=== PATIENT | female | born 1955 | race Caucasian/White ===

== ENCOUNTER 2017-09-19 13:48 | Observation (INO) | payer OTHER ==
--- NOTE | 2017-09-19 14:05 | RADIOLOGY REPORT (SQ) ---
EXAM DESCRIPTION: CT HEAD WITHOUT COMPLETED DATE/TIME: 09/19/2017 1:55 pm REASON FOR STUDY: stroke s/s COMPARISON: None. TECHNIQUE: Axial images acquired through the brain without intravenous contrast. Images reviewed wi th bone, brain and subdural windows. Images stored on PACS. All CT scanners at this facility use dose modulation, iterative reconstruction, and/or weight based d osing when appropriate to reduce radiation dose to as low as reasonably achievable (ALARA). [facility]: Dose Right [facility]: CareDose [facility]: Dose Right [facility]: Teradose 4D [facility]: Smart [employer] RADIATION DOSE: mGy. LIMITATIONS: None. FINDINGS: VENTRICLES: Normal size and contour. CEREBRUM: No masses. No hemorrhage. No midline shift. No evidence for acute infarction. Normal gra y/white matter differentiation. No areas of low density in the white matter. CEREBELLUM: No masses. No hemorrhage. No alteration of density. No evidence for acute infarction. EXTRAAXIAL SPACES: No fluid collections. No masses. ORBITS AND GLOBE: No intra- or extraconal masses. Normal contour of globe without masses. CALVARIUM: No fracture. PARANASAL SINUSES: No fluid or mucosal thickening. SOFT TISSUES: No mass or hematoma. OTHER: No other significant finding. IMPRESSION: NORMAL BRAIN CT WITHOUT CONTRAST. EVIDENCE OF ACUTE STROKE: NO. COMMENT: Quality ID # [id number]: Final reports with documentation of one or more dose reduction techniques (e.g., Automated exposure control, adjustment of the mA and/or kV according to patient size, use of iterative reconstruction technique) TECHNICAL DOCUMENTATION: JOB ID: [id number] [employer]- All Rights Reserved
--- NOTE | 2017-09-19 14:08 | RADIOLOGY REPORT (SQ) ---
EXAM DESCRIPTION: CHEST SINGLE VIEW COMPLETED DATE/TIME: 09/19/2017 2:00 pm REASON FOR STUDY: stroke s/s COMPARISON: None. EXAM PARAMETERS: NUMBER OF VIEWS: One view. TECHNIQUE: Single frontal radiographic view of the chest acquired. RADIATION DOSE: NA LIMITATIONS: None. FINDINGS: LUNGS AND PLEURA: No opacities, masses or pneumothorax. No pleural effusion. MEDIASTINUM AND HILAR STRUCTURES: No masses. Contour normal. HEART AND VASCULAR STRUCTURES: Heart normal in size. Normal vasculature. BONES: No acute findings. HARDWARE: None in the chest. OTHER: No other significant finding. IMPRESSION: NO ACUTE RADIOGRAPHIC FINDING IN THE CHEST. TECHNICAL DOCUMENTATION: JOB ID: [id number] [employer]- All Rights Reserved
[2017-09-19 14:14] LABS: ABSOLUTE BASOPHILS # (AUTO) 0.1 10^3/uL (0.0-0.2); ABSOLUTE EOSINOPHILS # (AUTO) 0.2 10^3/uL (0.0-0.6); ABSOLUTE LYMPHOCYTES (AUTO) 2.2 10^3/uL (0.5-4.7); ABSOLUTE MONOCYTES (AUTO) 0.5 10^3/uL (0.1-1.4); ABSOLUTE NEUT (AUTO) 4.9 10^3/uL (1.7-8.2); BASOPHILS % (AUTO) 0.9 % (0-2); EOSINOPHILS % (AUTO) 2.2 % (0-6); HEMATOCRIT 37.8 % (36.0-47.0); HEMOGLOBIN 12.8 g/dL (12.0-15.5); HGB HCT DIFFERENCE 0.6; LYMPHOCYTES % (AUTO) 27.9 % (13-45); MEAN CORPUSCULAR HGB CONC 33.8 g/dL (32.0-36.0); MEAN CORPUSCULAR VOLUME 86 fl (80-97); MONOCYTES % (AUTO) 6.6 % (3-13); RED BLOOD COUNT 4.41 10^6/uL (3.72-5.28); RED CELL DISTRIBUTION WIDTH 13.6 % (11.5-14.0); SEGMENTED NEUTROPHILS % (AUTO) 62.4 % (42-78); WHITE BLOOD COUNT 7.9 10^3/uL (4.0-10.5)
[2017-09-19 14:16] LABS: PROTHROMBIN TIME 13.2 SEC (11.4-15.4)
[2017-09-19 14:32] LABS: ALANINE AMINOTRANSFERASE 39 U/L (9-52); ALBUMIN 4.2 g/dL (3.5-5.0); ALKALINE PHOSPHATASE 77 U/L (38-126); ANION GAP 14 (5-19); ASPARTATE AMINO TRANSFERASE 38 U/L (14-36); BILIRUBIN,DIRECT 0.4 mg/dL (0.0-0.4); BILIRUBIN,TOTAL 0.8 mg/dL (0.2-1.3); BLOOD UREA NITROGEN 9 mg/dL (7-20); CALCIUM 9.5 mg/dL (8.4-10.2); CARBON DIOXIDE 24 mmol/L (22-30); CHLORIDE 106 mmol/L (98-107); CREATINE KINASE 126 U/L (30-135); CREATININE RESULT 0.76 mg/dL (0.52-1.25); GLUCOSE 83 mg/dL (75-110); POTASSIUM 4.1 mmol/L (3.6-5.0); SODIUM 143.8 mmol/L (137-145); TOTAL PROTEIN 7.5 g/dL (6.3-8.2)
--- NOTE | 2017-09-19 14:32 | ER Document Report ---
ED Neuro Symptoms/Deficit - General Chief Complaint: S/S of Possible Stroke Stated Complaint: POSSIBLE STROKE Time Seen by Provider: 09/19/17 14:18 Notes: Patient says that she had sudden onset of inability to feel on her right side, starting in the foot and then moving up her body. It felt numb, but it is "coming back now". She had difficulty speaking and was not able to talk when the symptoms were at their worst. Did not have any loss of consciousness and no headache. She keeps saying that it is "coming back now" over and over. Patient denies any difficulty with keeping her balance and was able to stand to get on the stretcher when EMS picked her up. Patient denies nausea or vomiting. Denies chest pains. Denies any fever. Patient denies any difficulty breathing or shortness of breath. Has not had any recent illness or fevers. Patient says that she was at work at [employer] at about 1:00 today when the symptoms occurred. She cannot tell me what her duties are at [employer]. Patient says that she has not had any medical problems in the past and is not currently on any medications. She has had no surgeries. Patient denies being under any unusual stress or strain or emotional concerns. - Related Data Allergies/Adverse Reactions: No Known Allergies Allergy (Unverified 09/19/17 14:15) Past Medical History - Social History Smoking Status: Unknown if Ever Smoked Cigarette use (# per day): No Chew tobacco use (# tins/day): No Frequency of alcohol use: None Drug Abuse: None Family History: Reviewed & Not Pertinent Patient has suicidal ideation: No Patient has homicidal ideation: No - Medical History Medical History: Negative Review of Systems - Review of Systems Notes: REVIEW OF SYSTEMS: CONSTITUTIONAL : Denies fever. EENT: Denies eye, ear, nose or mouth or throat pain or other symptoms. CARDIOVASCULAR: Denies chest pain. RESPIRATORY: Denies cough, chest congestion, or shortness of breath. GASTROINTESTINAL: Denies abdominal pain or nausea, vomiting, or diarrhea. GENITOURINARY: Denies difficulty or painful urinating, urinary frequency, blood in urine. MUSCULOSKELETAL: Denies back or neck pain. Denies joint pain or swelling. SKIN: Denies rash or skin lesions. NEUROLOGICAL: Denies LOC. Denies headache. Denies change in vision. ALL OTHER SYSTEMS REVIEWED AND NEGATIVE. Physical Exam - Vital signs Vitals: Resp Pulse Ox 17 99 09/19/17 14:09 09/19/17 14:09 Interpretation: Normal - Notes Notes: PHYSICAL EXAMINATION: GENERAL: Well-appearing, in no acute distress. Anxious. Speech is somewhat interrupted and stuttering and hesitant and at times patient is not able to answer a question like what her job description entails. HEAD: Atraumatic, normocephalic. EYES: Pupils equal round and reactive to light, extraocular movements intact. ENT: oropharynx clear without exudates. Moist mucous membranes. NECK: Normal range of motion, supple. No carotid bruits heard. LUNGS: Breath sounds clear and equal bilaterally. HEART: Regular rate and rhythm without murmurs. ABDOMEN: Soft, nontender. No guarding or rebound. BACK: No tenderness throughout entire back. EXTREMITIES: Normal range of motion without pain. NEUROLOGICAL: Speech is somewhat stuttering and hesitant and at times, does not speak at all. Gait not observed at this time. Normal sensory, motor, and reflex exams. Awake, alert, and oriented x3. Cranial nerves normal. PSYCH: Normal mood, normal affect. SKIN: Warm, dry, no rashes. Course - Re-evaluation Re-evalutation: 09/19/17 16:33 Patient symptoms have now totally resolved. She no longer feels difficulty with her speech. She is now able to answer any questions asked of her. Her sister says that she is her normal self completely. Patient likely had a small TIA that has resolved for now. I have spoken with the hospitalist and patient will be admitted for observation to telemetry. - Vital Signs Vital signs: Temp Pulse Resp BP Pulse Ox 83 18 150/81 H 100 09/19/17 14:13 09/19/17 14:13 09/19/17 14:13 09/19/17 14:13 - Laboratory Result Diagrams: 09/19/17 14:00 09/19/17 14:00 - Diagnostic Test Radiology reviewed: Image reviewed, Reports reviewed - CT scan of the brain is normal. Radiology results interpreted by me: 09/19/17 16:34 Chest x-ray is normal. - EKG Interpretation by [place] EKG shows normal: Sinus rhythm Rate: Normal Rhythm: NSR Additional EKG results interpreted by me: 09/19/17 14:36 EKG is normal. Discharge - Discharge Clinical Impression: TIA (transient ischemic attack) Condition: Stable Disposition: ADMITTED OBSERVATION Admitting Provider: Hospitalist Unit Admitted: Telemetry
[2017-09-19 14:44] LABS: CREATINE KINASE MB 1.28 ng/mL (<4.55)
[2017-09-19 14:45] LABS: TROPONIN I < 0.012 ng/mL
[2017-09-19] MEDS ORDERED: ASPIRIN 81 MG TABLET, CHEWABLE PO ONE (16:31)
[2017-09-19] MEDS ORDERED: ACETAMINOPHEN 325 MG TABLET PO PRN (17:39)
[2017-09-19] MEDS ORDERED: ONDANSETRON 4 MG TAB.RAPDIS PO PRN (17:39)
[2017-09-19] MEDS ORDERED: ONDANSETRON HCL INJ/PF 4 MG/2 ML SDV IV PRN (17:39)
--- NOTE | 2017-09-19 17:50 | PDOC H&P ---
History of Present Illness Admission Date/PCP: 09/19/17 17:08 Patient complains of: Right sided numbness History of Present Illness: BENI SANDERSON is a 62 year old female who has no significant past medical history who was at work today when she began to experience right-sided numbness. Patient reports that it started with her leg and then advanced up to her involve her right arm and right face. Her coworker noticed that she has some slurred speech and called 911. The patient has had resolution of the symptoms by the time EMS arrived. Patient has no significant past medical history does not take any medications. She denies any visual loss. She denies any dysphagia. Denies any focal weakness. 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 Traumatic Medical History: Reports: None Hematology: Reports: None Infectious Medical History: Reports: None Past Surgical History Past Surgical History: Reports: Other - Skin surgery for squamous cell cancer. Social History Information Source: Patient Lives with: Alone Smoking Status: Never Smoker Frequency of Alcohol Use: None Hx Recreational Drug Use: No Drugs: None Hx Prescription Drug Abuse: No - Advance Directive Resuscitation Status: Full Code Family History Family History: Mother at age 70 from kidney cancer. Father is 70 alive. His health history is unknown. Parental Family History Reviewed: Yes Children Family History Reviewed: No Sibling(s) Family History Reviewed.: No Medication/Allergy Allergies/Adverse Reactions: No Known Allergies Allergy (Unverified 09/19/17 14:15) Review of Systems Constitutional: ABSENT: chills, fever(s), headache(s), weight gain, weight loss Eyes: ABSENT: visual disturbances Ears: ABSENT: hearing changes Cardiovascular: ABSENT: chest pain, dyspnea on exertion, edema, orthropnea, palpitations Respiratory: ABSENT: cough, hemoptysis Gastrointestinal: ABSENT: abdominal pain, constipation, diarrhea, hematemesis, hematochezia, nausea, vomiting Genitourinary: ABSENT: dysuria, hematuria Musculoskeletal: ABSENT: joint swelling Integumentary: ABSENT: rash, wounds Neurological: PRESENT: as per HPI Psychiatric: ABSENT: anxiety, depression Endocrine: ABSENT: cold intolerance, heat intolerance, polydipsia, polyuria Hematologic/Lymphatic: ABSENT: easy bleeding, easy bruising Physical Exam Vital Signs: Temp Pulse Resp BP Pulse Ox 97.7 F 75 19 141/88 H 97 09/19/17 14:35 09/19/17 16:59 09/19/17 17:01 09/19/17 17:01 09/19/17 17:01 General appearance: PRESENT: no acute distress, well-developed, well-nourished Head exam: PRESENT: atraumatic, normocephalic Eye exam: PRESENT: conjunctiva pink, EOMI, PERRLA. ABSENT: scleral icterus Ear exam: PRESENT: normal external ear exam Mouth exam: PRESENT: moist, tongue midline Neck exam: ABSENT: carotid bruit, JVD, lymphadenopathy, thyromegaly Respiratory exam: PRESENT: clear to auscultation alma delia. ABSENT: rales, rhonchi, wheezes Cardiovascular exam: PRESENT: RRR. ABSENT: diastolic murmur, rubs, systolic murmur Pulses: PRESENT: normal dorsalis pedis pul Vascular exam: PRESENT: normal capillary refill GI/Abdominal exam: PRESENT: normal bowel sounds, soft. ABSENT: distended, guarding, mass, organolmegaly, rebound, tenderness Rectal exam: PRESENT: deferred Extremities exam: PRESENT: full ROM. ABSENT: calf tenderness, clubbing, pedal edema Neurological exam: PRESENT: alert, awake, oriented to person, oriented to place , oriented to time, oriented to situation, CN II-XII grossly intact. ABSENT: motor sensory deficit Psychiatric exam: PRESENT: appropriate affect Skin exam: PRESENT: dry, intact, warm. ABSENT: cyanosis, rash Results Impressions: Chest X-Ray 09/19/17 13:50 IMPRESSION: NO ACUTE RADIOGRAPHIC FINDING IN THE CHEST. Head CT 09/19/17 13:50 IMPRESSION: NORMAL BRAIN CT WITHOUT CONTRAST. EVIDENCE OF ACUTE STROKE: NO. Assessment & Plan - Diagnosis (1) TIA (transient ischemic attack) Is this a current diagnosis for this admission?: Yes Plan: Patient had numbness of the right arm leg and right face. She has had complete resolution of symptoms. She did also have some slurred speech. This is all consistent with a possible TIA. We will admit as an observation and monitor on telemetry. Will start on aspirin and statins. Will check an MRI and carotid Dopplers. If she has any cardiac arrhythmias on telemetry we will order an echocardiogram otherwise she can get that done as an outpatient. - Time Time Spent: 50 to 70 Minutes - Plan Summary Plan Summary: Patient is admitted as an observation.
[2017-09-19] MEDS ORDERED: INFLUENZA ADLT QUAD (36MOS+) 2017-18 VAC 0.5 ML SYR IM PRN (18:57)
--- NOTE | 2017-09-19 19:00 | RADIOLOGY REPORT (SQ) ---
EXAM DESCRIPTION: MRI HEAD WITHOUT COMPLETED DATE/TIME: 09/19/2017 6:50 pm REASON FOR STUDY: tia COMPARISON: None. TECHNIQUE: Multiplanar imaging includes non-contrasted T1, T2, FLAIR, and diffusion with ADC map seq uences. Images stored on PACS. LIMITATIONS: None. FINDINGS: ANATOMY: No anomalies. Normal vascular flow voids. Pituitary fossa normal. CSF SPACES: Normal in size and contour. No hemorrhage. CEREBRUM: Sulci and gyri normal in size and contour. Normal white matter signal on FLAIR imaging. No evidence of hemorrhage, mass, or extraaxial fluid collection. POSTERIOR FOSSA: No signal alteration. No hemorrhage. No edema, masses or mass effect. Internal sharad tory canals, cerebello-pontine angles, mastoids normal. DIFFUSION IMAGING: Negative for acute or sub-acute infarction. ORBITS: No masses. Globes normal. PARANASAL SINUSES: No fluid levels. Mucosa normal. OTHER: No other significant finding. IMPRESSION: NORMAL MRI OF THE BRAIN WITHOUT INTRAVENOUS GADOLINIUM CONTRAST. EVIDENCE OF ACUTE STROKE: NO. TECHNICAL DOCUMENTATION: JOB ID: [id number]- All Rights Reserved
[2017-09-19] MEDS: FAMOTIDINE 20 MG TABLET PO SCH (21:12)
[2017-09-19] MEDS ORDERED: ATORVASTATIN CALCIUM 40 MG TABLET PO SCH (22:00)
--- NOTE | 2017-09-19 23:00 | EKG REPORT ---
SEVERITY:- NORMAL ECG - SINUS RHYTHM : Confirmed by: Robert Mccallum 19-Sep-2017 22:59:49
[2017-09-20 05:59] LABS: CHOLESTEROL 212.06 mg/dL (0-200); Direct HDL 35 mg/dL (>40); TRIGLYCERIDES 170 mg/dL (<150)
[2017-09-20 06:10] LABS: DIRECT LDL 150 mg/dL (<100)
[2017-09-20] MEDS: FAMOTIDINE 20 MG TABLET PO SCH (09:24)
[2017-09-20] MEDS ORDERED: ASPIRIN 81 MG TABLET, ENT COATED PO SCH (10:00)
--- NOTE | 2017-09-20 12:42 | RADIOLOGY REPORT (SQ) ---
EXAM DESCRIPTION: CAROTID DOPPLER COMPLETED DATE/TIME: 09/20/2017 12:29 pm REASON FOR STUDY: tia COMPARISON: None. TECHNIQUE: Grayscale ultrasound, Doppler velocity and spectra, and color Doppler images acquired of the extra-cranial carotid and vertebral arteries. Images stored on PACS. LIMITATIONS: None. FINDINGS: RIGHT CAROTID CCA Velocities: Within normal limits. ICA Velocities Peak systolic 0.93 m/s. End diastolic 0.42 m/s. Proximal ICA/CCA peak systolic ratio 1.2. Spectra normal. No significant plaque. LEFT CAROTID CCA Velocities: Within normal limits. ICA Velocities Peak systolic 0.89 m/s. End diastolic 0.35 m/s. Proximal ICA/CCA peak systolic ratio 1.2. Spectra normal. No significant plaque. VERTEBRAL ARTERIES: Antegrade flow. Normal waveforms. SUBCLAVIAN ARTERIES: No finding. OTHER: No other significant finding. IMPRESSION: NO HEMODYNAMICALLY SIGNIFICANT STENOSIS. COMMENT: Quality ID #[id number]: Velocity criteria are extrapolated from the diameter data as defined by t he Society of Radiologists in Ultrasound Consensus Conference. Radiology 2003: 229; 340-346. TECHNICAL DOCUMENTATION: JOB ID: [id number] [employer]- All Rights Reserved
[2017-09-20 13:45] VITALS: BP 147/88
--- NOTE | 2017-09-20 14:52 | PDOC DISCHARGE SUMMARY ---
General - Admit/Disc Date/PCP Admission Date/Primary Care Provider: 09/19/17 17:08 Discharge Date: 09/20/17 - Discharge Diagnosis (1) TIA (transient ischemic attack) Is this a current diagnosis for this admission?: Yes Summary: Normal MRI and carotid Dopplers. - Additional Information Resuscitation Status: Full Code Discharge Diet: Regular Discharge Activity: Activity As Tolerated Home Medications: Aspirin [Ecotrin 81 mg EC Tablet] 81 mg PO DAILY tabec 09/20/17 Atorvastatin Calcium [Lipitor 40 mg Tablet] 40 mg PO QHS #30 tablet 09/20/17 Flu Vacc [id number] Up/Pf [Fluzone Adlt Quad [id number] Vac 0.5 ml Syr] 0.5 ml IM .DISCHARGE PRN disp.syrin 09/20/17 History of Present Illness History of Present Illness: BENI SANDERSON is a 62 year old female who has no significant past medical history who was at work today when she began to experience right-sided numbness. Patient reports that it started with her leg and then advanced up to her involve her right arm and right face. Her coworker noticed that she has some slurred speech and called 911. The patient has had resolution of the symptoms by the time EMS arrived. Patient has no significant past medical history does not take any medications. She denies any visual loss. She denies any dysphagia. Denies any focal weakness. Hospital Course Hospital Course: 62-year-old female who was at work and presented with right-sided numbness and tingling. The patient was felt to most likely have suffered a TIA and was admitted for workup. She had unremarkable telemetry and had an MRI of the brain which was normal. The carotid Dopplers also were normal. Given that she had no cardiac arrhythmias and echocardiogram was not done. She was started on aspirin and Lipitor. She has had complete resolution of her symptoms and is discharged home. Physical Exam Vital Signs: Temp Pulse Resp BP Pulse Ox 98.7 F 78 20 147/88 H 95 09/20/17 13:43 09/20/17 13:43 09/20/17 13:43 09/20/17 13:43 09/20/17 13:43 Intake & Output 09/19/17 09/20/17 09/21/17 06:59 06:59 06:59 Intake Total 783 118 Output Total 300 Balance 783 -182 Weight 100.1 kg General appearance: PRESENT: no acute distress, well-developed, well-nourished Head exam: PRESENT: atraumatic, normocephalic Eye exam: PRESENT: conjunctiva pink, EOMI, PERRLA. ABSENT: scleral icterus Mouth exam: PRESENT: moist, tongue midline Neck exam: ABSENT: carotid bruit, JVD, lymphadenopathy, thyromegaly Respiratory exam: PRESENT: clear to auscultation alma delia. ABSENT: rales, rhonchi, wheezes Cardiovascular exam: PRESENT: RRR. ABSENT: diastolic murmur, rubs, systolic murmur GI/Abdominal exam: PRESENT: normal bowel sounds, soft. ABSENT: distended, guarding, mass, organolmegaly, rebound, tenderness Extremities exam: ABSENT: calf tenderness, clubbing, pedal edema Neurological exam: PRESENT: alert, awake, oriented to person, oriented to place , oriented to time, oriented to situation, CN II-XII grossly intact. ABSENT: motor sensory deficit Psychiatric exam: PRESENT: appropriate affect Skin exam: PRESENT: dry, intact, warm. ABSENT: cyanosis, rash Results Laboratory Results: 09/20/17 04:38 Triglycerides 170 H Cholesterol 212.06 H LDL Cholesterol Direct 150 H VLDL Cholesterol 34.0 H HDL Cholesterol 35 L Impressions: Head MRI 09/19/17 00:00 IMPRESSION: NORMAL MRI OF THE BRAIN WITHOUT INTRAVENOUS GADOLINIUM CONTRAST. EVIDENCE OF ACUTE STROKE: NO. Chest X-Ray 09/19/17 13:50 IMPRESSION: NO ACUTE RADIOGRAPHIC FINDING IN THE CHEST. Head CT 09/19/17 13:50 IMPRESSION: NORMAL BRAIN CT WITHOUT CONTRAST. EVIDENCE OF ACUTE STROKE: NO. Carotid Doppler Study 09/20/17 00:00 IMPRESSION: NO HEMODYNAMICALLY SIGNIFICANT STENOSIS. Qualifiers PATEINT BEING DISCHARGED WITH ANY OF THE FOLLOWING DIAGNOSIS?: Stroke Stroke Pt being discharged on Anti-thrombolytic therapy?: Yes Stroke Pt being discharged on Anti-coagulation therapy?: No Reason(s) for not prescribing Anti-coagulation therapy:: Not indicated Stroke Pt being discharged on Statins?: Yes Plan Discharge Plan: Patient is discharged home. Will follow up with primary care in 2 weeks. Time Spent: Less than 30 Minutes
== END 2017-09-20 14:14 | disposition home or self-care (01) ==
LOC: ER 13:48 → EH 17:08 → 3W 18:40
PROVIDERS: ADMIT Internal Medicine; ATTEND Internal Medicine
PROC: 3E0234Z Introduction of Serum, Toxoid and Vaccine into Muscle, Percutaneous Approach (ICD-10-PCS; principal; 2017-09-20)
DX: G45.9 Transient cerebral ischemic attack, unspecified (principal); Z79.82 Long term (current) use of aspirin; Z79.899 Other long term (current) drug therapy; Z85.828 Personal history of other malignant neoplasm of skin
CPT/HCPCS: 93005; 99285; 36415 ×2; 82553; 82550; 85025; 85610; 85730; 80053; 84484; 80061; 93880; 70551; 71010; 70450; 90686; 93010; G0378 ×3; J3490 ×2

== ENCOUNTER → 2017-12-24 | Day surgery (SDC) | payer OTHER ==
[~2017-12-24] MED LIST: LIDOCAINE 1%/EPINEPHRINE INJ 20 ML VIAL ONE
--- NOTE | 2017-12-24 10:32 | Discharge Summary ---
Discharge Summary (SDC) - Discharge Final Diagnosis: Nodules upper outer quadrant left breast Date of Surgery: 12/24/17 Discharge Date: 12/24/17 Condition: Good Treatment or Instructions: Compression bra; Tylenol or Motrin as needed pain; resume preoperative medications diet activity; follow-up with [facility] in 1-2 weeks Referrals: MARYA POOLE MD [Primary Care Provider] - Discharge Diet: As Tolerated Discharge Activity: Activity As Tolerated Home Care Assistance: None Needed Report the Following to Your Physician Immediately: Shortness of Breath, Increase in Pain, Fever over 101 Degrees
--- NOTE | 2017-12-24 10:36 | Operative Report ---
Operative Report DATE OF SURGERY: 12/24/17 PREOPERATIVE DIAGNOSIS: Tandem nodules upper outer quadrant left breast POSTOPERATIVE DIAGNOSIS: Same OPERATION: 1. Stereotactically directed incisional myotomy core biopsies left breast upper outer quadrant nodules. 2. Placement of clip marker in C cavity. 3. Interpretation of intraprocedure mammography SURGEON: MARYA POOLE ANESTHESIA: Local TISSUE REMOVED OR ALTERED: Multiple cores left breast COMPLICATIONS: None ESTIMATED BLOOD LOSS: Minimal INTRAOPERATIVE FINDINGS: See below PROCEDURE: The patient was taken from the waiting area in the radiology suite at [facility] to the procedure room where the left breast was placed into compression using a CC approach. The target nodules were identified in the upper outer quadrant of the left breast. Once stereotactic views were obtained, with confirmation of the target tissue, the surface of the left breast was prepped with Betadine and anesthetized 1% plain lidocaine. A german was made in the skin with 11 blade and the mammotome advanced to the appropriate depth. Pre-and post fire films showed good alignment between the tip of the mammotome and the center of the 2 nodules. We completed stereotactic biopsy in a circumferential fashion with the acquisition of approximately 10 cores of tissue. A clip marker was placed in the cavity at the conclusion of biopsy. Postprocedure film showed retention of the clip. Imaging of the specimens obtained as there were no microcalcifications in the target tissue. The breast was taken out of compression. She tolerated the procedure well. Discharge instructions provided
--- NOTE | 2017-12-30 17:49 | WOMENS IMAGING REPORT ---
EXAM DESCRIPTION: STEREO BREAST BX; LEFT DIG DX MAMMO NO CHG COMPLETED DATE/TIME: 12/24/2017 12:38 pm; 12/24/2017 12:49 pm REASON FOR STUDY: SOLITARY CYST OF LEFT BREAST; POST LT STEREO N60.02 SOLITARY CYST OF LEFT BREAST COMPARISON: 10/21/2017 outside films LIMITATIONS: None. PROCEDURE: Vacuum-assisted stereotactic-guided biopsy of the lesion in the left breast performed by Dr. Pablo who also targeted the lesion. Using stereotactic guidance, a vacuum-assisted core biopsy of the targeted lesion was performed. A p ellet clip was deployed at the biopsy site. Post procedure image reveals the clip at the biopsy site . TECHNIQUE: Images from the stereotactic unit acquired during the procedure. Specimen radiography performed. No Post- procedure image acquired post-clip placement. Yes Post procedure 2 view mammograms performed in the mammography suite. Yes FINDINGS: SPECIMEN RADIOGRAPH:Not performed. POST PROCEDURE MAMMOGRAMS FOR MARKER PLACEMENT: Yes POST PROCEDURE MAMMOGRAM: Clip is in expected location. No significant hematoma. PATHOLOGY: Ductal carcinoma in situ CONCORDANT: Yes. The operating surgeon was notified of the findings. IMPRESSION: SUCCESSFUL STEREOTACTIC-GUIDED BIOPSY OF LESION IN THE LEFT BREAST. BIOPSY RESULTS ARE CONCORDANT WITH IMAGING FINDINGS. FOLLOW-UP: PER SURGEON BI-RADS 6, known malignancy appropriate action should be taken TECHNICAL DOCUMENTATION: JOB ID: [id number] [employer]- All Rights Reserved Reading location - IP/workstation name: [facility]
== END ==
LOC: RAD 08:39
PROVIDERS: ATTEND Surgery
PROC: 0HBU3ZX Excision of Left Breast, Percutaneous Approach, Diagnostic (ICD-10-PCS; principal; 2017-12-24)
DX: D05.12 Intraductal carcinoma in situ of left breast (principal)
CPT/HCPCS: 88305 ×2; 88342; 19081; J3490

== ENCOUNTER 2018-01-27 10:09 | Day surgery (SDC) | payer OTHER ==
[2018-01-20 11:12] LABS: HEMATOCRIT 37.3 % (36.0-47.0); HEMOGLOBIN 12.5 g/dL (12.0-15.5); MEAN CORPUSCULAR HEMOGLOBIN 29.1 pg (27.0-33.4); MEAN CORPUSCULAR HGB CONC 33.6 g/dL (32.0-36.0); MEAN CORPUSCULAR VOLUME 87 fl (80-97); PLATELET COUNT 246 10^3/uL (150-450); WHITE BLOOD COUNT 6.8 10^3/uL (4.0-10.5)
[2018-01-20 11:30] LABS: ANION GAP 12 (5-19); BLOOD UREA NITROGEN 17 mg/dL (7-20); CALCIUM 9.9 mg/dL (8.4-10.2); CARBON DIOXIDE 29 mmol/L (22-30); CHLORIDE 104 mmol/L (98-107); GLUCOSE 100 mg/dL (75-110); POTASSIUM 5.3 mmol/L (3.6-5.0); SODIUM 145.1 mmol/L (137-145)
--- NOTE | 2018-01-20 13:58 | EKG REPORT ---
SEVERITY:- NORMAL ECG - SINUS RHYTHM : Confirmed by: Carlos Garzon MD 20-Jan-2018 13:57:02
[~2018-01-27 10:09] MED LIST changes: +CEFAZOLIN 1 GM/D5W RTU 1 GM/50 ML RTUPB IV PRN; +LACTATED RINGERS 1000 ML IV PRN; +LIDOCAINE 0.5% INJ-PF (5 MG/ML) 50 ML SDV SUBCUT PRN; -LIDOCAINE 1%/EPINEPHRINE INJ 20 ML VIAL ONE; +MICROFIBRILLAR COLLAGEN 1 GM PACK ONE
[2018-01-27] MEDS ORDERED: LIDOCAINE 2% INJ (20 MG/ML) 20 ML MDV ONE (10:23)
[2018-01-27] MEDS ORDERED: LIDOCAINE 1%/EPINEPHRINE INJ 20 ML VIAL ONE (12:04)
[2018-01-27] MEDS ORDERED: PROPOFOL INJ 200 MG/20 ML VIAL IV ONE (13:15)
[2018-01-27] MEDS ORDERED: MIDAZOLAM 2 MG/2 ML INJ ONE (13:15)
[2018-01-27] MEDS ORDERED: FENTANYL CITRATE INJ/PF 100 MCG/2 ML AMPUL ONE (13:15)
[2018-01-27] MEDS ORDERED: ONDANSETRON HCL INJ/PF 4 MG/2 ML SDV ONE (13:15)
[2018-01-27] MEDS ORDERED: ACETAMINOPHEN 100 ML IV ONE (13:15)
[2018-01-27] MEDS ORDERED: MORPHINE SULFATE 10 MG/ML INJ IV PRN (14:00)
[2018-01-27] MEDS ORDERED: FENTANYL CITRATE INJ/PF 100 MCG/2 ML AMPUL IV PRN ×3 (14:00)
[2018-01-27] MEDS ORDERED: DIPHENHYDRAMINE HCL 50 MG/ML VIAL IV PRN (14:00)
[2018-01-27] MEDS ORDERED: MEPERIDINE HCL/PF INJ 25 MG/1 ML DISP.SYRIN IV PRN (14:00)
[2018-01-27] MEDS ORDERED: PROMETHAZINE HCL INJ 25 MG/1 ML VIAL IV PRN (14:00)
[2018-01-27] MEDS ORDERED: OXYCODONE-ACETAMINOPHEN 5-325 MG TABLET PO PRN (14:48)
--- NOTE | 2018-01-27 14:48 | Discharge Summary ---
Discharge Summary (SDC) - Discharge Final Diagnosis: left breast cancer Date of Surgery: 01/27/18 Discharge Date: 01/27/18 Condition: Stable Treatment or Instructions: [facility] [address] [place], [place] [id number] Care Instructions Following Your Lumpectomy Activities: Resume normal activities when you feel comfortable. It is best to remain as active as possible to speed your recovery. It is common to experience some fatigue after surgery and you may find that short naps are helpful. Avoid strenuous activity such as weight lifting, tennis, etc at your surgical site for two weeks. Perform gentle arm exercises daily and do not favor your operative arm to due increased risk of mobility issues postoperatively. No driving for 7 days after surgery. Do not drive if you are taking pain medication other than Tylenol or Ibuprofen. No swimming, tub baths or soaking in a hot tub for 4 weeks. There are no dietary restrictions. Do not smoke as this impairs wound healing. Surgical Site care: Leave skin glue intact. You may shower in 24 hours. Do not scrub the incision. Pat the area dry with a towel. You do not need to recover the wound although some patients find that they feel more comfortable using a light dressing for a few days to absorb any minimal drainage which may occur. Medications: Take pain control such as Toradol one to tablets every six hours as needed for breakthrough pain. Resume all of your normal prescription medications after your surgery unless instructed otherwise. You may experience constipation after surgery while taking pain medications. If using a narcotic on a regular basis, take a stool softener such as Colace twice a day. It is helpful to stay hydrated by drinking lots of fluids. Walking is also helpful and is good exercise after surgery. If you need extra help, use Milk of Magnesia according to the directions on the package. Follow-up: Call our office at to make a follow-up appointment in 10-14 days. Your doctor will call to discuss the pathology report with you as soon as it is available. Prescriptions: Ketorolac Tromethamine [Toradol 10 mg Tablet] 10 mg PO Q6HP PRN #20 tablet PRN Reason: Referrals: SAMMI GONZALEZ MD [Primary Care Provider] - Discharge Diet: As Tolerated Discharge Activity: No Lifting/Push/Pulling, Walk Frequently Report the Following to Your Physician Immediately: Fever over 101 Degrees, Unusual Bleeding, Redness, Swelling, Warmth, Increased Soreness
--- NOTE | 2018-01-27 15:04 | Operative Report ---
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 Guevara of the clip marker in the left breast following stereotactically directed incisional myotomy core biopsies demonstrating DCIS left breast. The needle and wire were posterior, deep and/or dorsal to the clip. The left breast was marked, then the patient was taken to the main operating room where LMAC anesthesia was induced. Left arm was abducted, hub of the needle and wire clipped with electric wirer, breast taped in a caudad direction, and the left breast, and needle and wire exiting the left breast were prepped and draped in sterile fashion. Surgical plan surgical timeout were conducted. Skin was anesthetized with 1% plain lidocaine. Approximately 4-1/2 cm incision was made 1 to 2 o'clock position left breast approximately 8 cm from the nipple , parallel to the needle and wire coursing into the left breast. Ultrasound was used to direct the dissection following the wire. A moderate-sized lumpectomy was then performed using electrocautery. The final specimen was approximately 8 x 7 x 7 cm. It was removed from the patient's the left breast, marked with a long suture in the lateral position, short suture in the superior position. The specimen was taken off the field, and imaged with the portable imaging radiographic machine in the operating room. The radiograph contained the needle , wire, clip marker all in the center of the specimen. The specimen was interpreted by Dr. Guevara are containing the requisite records. Wound closing layers with 3-0 Vicryl, Dermabond glue. Patient taken to recovery room stable condition. The physician assistant loan processor, Ms. Turner, provided assistance during this case by: retracting tissue, instillation of local anesthesia and closure of skin incisions.
[2018-01-27 16:39] VITALS: BP 119/75
== END 2018-01-27 16:25 | disposition home or self-care (01) ==
LOC: OROUT 10:09
PROVIDERS: ATTEND Surgery
PROC: 0HBU0ZZ Excision of Left Breast, Open Approach (ICD-10-PCS; principal; 2018-01-27 12:00)
DX: D05.12 Intraductal carcinoma in situ of left breast (principal); E78.00 Pure hypercholesterolemia, unspecified; I10 Essential (primary) hypertension; E66.9 Obesity, unspecified; Z68.37 Body mass index [BMI] 37.0-37.9, adult; Z79.899 Other long term (current) drug therapy; Z79.82 Long term (current) use of aspirin; Z86.73 Personal history of transient ischemic attack (TIA), and cerebral infarction without residual deficits
CPT/HCPCS: 93005; 36415 ×2; 84132; 85027; 80048; 88307 ×2; 88342; 93010; 19281; 76098; 19301; J2250; J3490 ×2; J0690; J3010; J2405; J2704; J0131; 400

== ENCOUNTER → 2018-05-12 | Outpatient (CLI) | payer OTHER ==
--- NOTE | 2018-05-12 10:32 | WOMENS IMAGING REPORT ---
EXAM DESCRIPTION: BONE DENSITY HIP/SPINE COMPLETED DATE/TIME: 05/12/2018 9:51 am REASON FOR STUDY: BONE DENSITY/ M81.0 M81.0 AGE-RELATED OSTEOPOROSIS W/O CURRENT PATHOLOGICAL FRAC COMPARISON: None. TECHNIQUE: Dual-Energy X-ray Absorptiometry (DEXA) of the AP Spine and Hip. LIMITATIONS: None. FINDINGS: LUMBAR SPINE: The bone mineral density (BMD) measured from L1-L4 in the AP projection correlates with a T-score of -1.9, which is osteopenia as defined by the World Health Organization. HIP: The bone mineral density (BMD) measured in the left hip correlates with a T-score of -0.9, which is n ormal as defined by the World Health Organization. IMPRESSION: 1. LUMBAR SPINE: Osteopenia 2. HIP: Normal COMMENT: The World Health Organization defines low BMD as follows: T-score: Normal: Greater than -1.0 Osteopenia: Between -1.0 and -2.5 Osteoporosis: Less than -2.5 without fractures Established osteoporosis: Less than -2.5 with fractures In general, you may wish to consider: Diagnosis Treatment Follow-up DEXA Normal BMD Prevention 2-3 years Osteopenia Prevention/Therapy 1-2 years Osteoporosis Therapy Yearly TECHNICAL DOCUMENTATION: JOB ID: [id number] [employer]- All Rights Reserved Reading location - IP/workstation name: [email or web address]
== END ==
LOC: WI 09:22
PROVIDERS: ATTEND Internal Medicine Hematology & Oncology
DX: M81.0 Age-related osteoporosis without current pathological fracture (principal)
CPT/HCPCS: 77080

== ENCOUNTER → 2018-07-13 | Outpatient (CLI) | payer OTHER ==
--- NOTE | 2018-07-15 10:35 | WOMENS IMAGING REPORT ---
EXAM DESCRIPTION: LEFT DIAGNOSTIC MAMMO W/CAD COMPLETED DATE/TIME: 07/13/2018 10:55 am REASON FOR STUDY: LEFT DIAGNOSTIC MAMMO/D05.12 D05.12 INTRADUCTAL CARCINOMA IN SITU OF LEFT BREAST COMPARISON: Mammograms 10/21/2017 through 01/19/2018 TECHNIQUE: Standard craniocaudal and mediolateral oblique images of the breast recorded with digital acquisition. Additional left 90 mediolateral view. Additional compression magnification views of the left breast lumpectomy site LIMITATIONS: None. FINDINGS: BREAST: Left MASSES: No suspicious masses. CALCIFICATIONS: No new or suspicious calcifications. ARCHITECTURAL DISTORTION: There is postoperative architectural distortion in the far upper outer quad rant right breast, 10 cm from the nipple. DEVELOPING DENSITY: None. ASYMMETRY: None noted. OTHER: Skin thickening left breast post radiation therapy Read with the assistance of CAD. .[facility] - R2 Cenova Version 1.3 .[facility] Imaging - R2 Cenova Version 1.3 .[facility] - R2 Cenova Version 2.4 .[facility] - R2 Cenova Version 2.4 .[facility] - R2 Technology Project Manager Version 9.2 IMPRESSION: Post therapeutic changes left breast. No mammographic evidence for malignancy. BREAST DENSITY: a. The breasts are almost entirely fatty. BIRAD: 2 Benign findings. RECOMMENDATION: RECOMMENDED FOLLOW UP: Please continue bilateral mammography in October 2018 SPECIFIC INTERVENTION/IMAGING/CONSULTATION RECOMMENDED:No additional intervention/ imaging/consultati on needed at this time. COMMUNICATION:Patient notified by letter COMMENT: The patient has been notified of the results by letter per SA requirements. Additional no tification policies are in place for contacting patient with suspicious or incomplete findings. Quality ID #[id number]: The [employer] recommends an annual screening mammogram for women aged 40 years or over. This facility utilizes a reminder system to ensure that all patients receive reminder letters, and/or direct phone calls for appointments. This includes reminders for routine scr eening mammograms, diagnostic mammograms, or other Breast Imaging Interventions when appropriate. Th is patient will be placed in the appropriate reminder system. The [employer] (ACR) has developed recommendations for screening MRI of the breast s in certain patient populations, to be used in conjunction with mammography. Breast MRI surveillanc e may be appropriate for women with more than 20% lifetime risk of developing breast cancer as deter mined by genetic testing, significant family history of the disease, or history of mantle radiation f or Hodgkins Disease. ACR Practice Guidelines 2008. TECHNICAL DOCUMENTATION: FINDING NUMBER: (1) ASSESSMENT: (1) JOB ID: [id number] [employer]- All Rights Reserved Reading location - IP/workstation name: [email or web address]
== END ==
LOC: WI 10:15
PROVIDERS: ATTEND Internal Medicine Hematology & Oncology
DX: D05.12 Intraductal carcinoma in situ of left breast (principal)

== ENCOUNTER → 2018-11-03 | Outpatient (CLI) | payer OTHER ==
--- NOTE | 2018-11-03 13:28 | WOMENS IMAGING REPORT ---
EXAM DESCRIPTION: BILAT DIAGNOSTIC MAMMO W/CAD COMPLETED DATE/TIME: 11/03/2018 9:20 am REASON FOR STUDY: D05.12,INTRADUCTAL CARCINOMA IN SITU OF LEFT BREAST D05.12 INTRADUCTAL CARCINOMA IN SITU OF LEFT BREAST COMPARISON: Prior mammograms 10/21/2017 TECHNIQUE: Standard craniocaudal and mediolateral oblique views of each breast recorded using digita l acquisition. Additional left breast 90 mediolateral view, additional left breast compression magnification views in the CC and ML orientations LIMITATIONS: None. FINDINGS: RIGHT BREAST MASSES: No suspicious masses. CALCIFICATIONS: No new or suspicious calcifications. ARCHITECTURAL DISTORTION: None. DEVELOPING DENSITY: None. ASYMMETRY: None noted. OTHER: No other significant findings. LEFT BREAST MASSES: No suspicious masses. CALCIFICATIONS: No new or suspicious calcifications. ARCHITECTURAL DISTORTION: Operative cavity in the left breast 12 cm from the nipple at the 2 o'clock position. Associated postoperative architectural distortion. DEVELOPING DENSITY: None. ASYMMETRY: None noted. OTHER: Left breast skin thickening post radiation Read with the assistance of CAD: .[facility] - R2 Cenova Version 1.3 .[facility] Imaging - R2 Cenova Version 1.3 .[facility] - R2 Cenova Version 2.4 .[facility] - R2 Cenova Version 2.4 .[facility] - R2 Boardmarker Version 9.2 IMPRESSION: No mammographic evidence for malignancy bilaterally. Post therapeutic changes left breast upper outer quadrant. BREAST DENSITY: b. There are scattered areas of fibroglandular density. BIRAD: 2 Benign findings. RECOMMENDATION: RECOMMENDED FOLLOW UP: Please continue right breast screening, left breast diagnosti c mammograms in October 2019 SPECIFIC INTERVENTION/IMAGING/CONSULTATION RECOMMENDED:No additional intervention/ imaging/consultati on needed at this time. COMMUNICATION:The negative/benign results were communicated to the patient. COMMENT: The patient has been notified of the results by letter per SA requirements. Additional no tification policies are in place for contacting patient with suspicious or incomplete findings. Quality ID #225: The [employer] recommends an annual screening mammogram for women aged 40 years or over. This facility utilizes a reminder system to ensure that all patients receive reminder letters, and/or direct phone calls for appointments. This includes reminders for routine scr eening mammograms, diagnostic mammograms, or other Breast Imaging Interventions when appropriate. Th is patient will be placed in the appropriate reminder system. The [employer] (ACR) has developed recommendations for screening MRI of the breast s in certain patient populations, to be used in conjunction with mammography. Breast MRI surveillanc e may be appropriate for women with more than 20% lifetime risk of developing breast cancer as deter mined by genetic testing, significant family history of the disease, or history of mantle radiation f or Hodgkins Disease. ACR Practice Guidelines 2008. TECHNICAL DOCUMENTATION: FINDING NUMBER: (1) ASSESSMENT: (1) JOB ID: [id number] [employer]- All Rights Reserved Reading location - IP/workstation name: [email or web address]
== END ==
LOC: WI 08:49
PROVIDERS: ATTEND Internal Medicine Hematology & Oncology
DX: D05.12 Intraductal carcinoma in situ of left breast (principal)
CPT/HCPCS: 77066

== ENCOUNTER → 2019-11-07 | Outpatient (CLI) | payer OTHER ==
--- NOTE | 2019-11-07 13:48 | WOMENS IMAGING REPORT ---
EXAM DESCRIPTION: BILAT DIAGNOSTIC MAMMO W/CAD COMPLETED DATE/TIME: 11/07/2019 10:19 am REASON FOR STUDY: D05.12 D05.12 INTRADUCTAL CARCINOMA IN SITU OF LEFT BREAST COMPARISON: 2017. 2018. EXAM PARAMETERS: Standard craniocaudal and mediolateral oblique views of each breast recorded using digital acquisition. Left lateral and magnification views. Read with the assistance of CAD: .[facility] - [employer] Landscape Technician Version 9.2 LIMITATIONS: None. FINDINGS: RIGHT BREAST MASSES: No suspicious masses. CALCIFICATIONS: Stable benign scattered calcifications. ARCHITECTURAL DISTORTION: None. ASYMMETRY: None noted. OTHER: No other significant findings. LEFT BREAST MASSES: No suspicious masses. CALCIFICATIONS: Benign calcifications. ARCHITECTURAL DISTORTION: Focal distortion at the operative site close to 12 o'clock in the posterior 3rd of the breast. Nonprogressive over time. ASYMMETRY: None noted. OTHER: No other significant finding. IMPRESSION: Post treatment changes left breast, stable. Benign changes in both breasts. BREAST DENSITY: b. There are scattered areas of fibroglandular density. BIRAD: ASSESSMENT: 2 Benign findings. RECOMMENDATION: RECOMMENDED FOLLOW UP: Yearly mammography. SPECIFIC INTERVENTION/IMAGING/CONSULTATION RECOMMENDED:No additional intervention/ imaging/consultati on needed at this time. COMMUNICATION:No significant abnormalities to discuss with the patient today. COMMENT: The patient has been notified of the results by letter per MQSA requirements. Additional no tification policies are in place for contacting patient with suspicious or incomplete findings. Quality ID #225: The [employer] recommends an annual screening mammogram for women aged 40 years or over. This facility utilizes a reminder system to ensure that all patients receive reminder letters, and/or direct phone calls for appointments. This includes reminders for routine scr eening mammograms, diagnostic mammograms, or other Breast Imaging Interventions when appropriate. Th is patient will be placed in the appropriate reminder system. TECHNICAL DOCUMENTATION: FINDING NUMBER: (1) ASSESSMENT: (1) JOB ID: [id number] [employer]- All Rights Reserved Reading location - IP/workstation name: [email or web address]
== END ==
LOC: WI 09:45
PROVIDERS: ATTEND Internal Medicine Hematology & Oncology
DX: D05.12 Intraductal carcinoma in situ of left breast (principal)
CPT/HCPCS: 77066

== ENCOUNTER → 2020-05-18 | Outpatient (CLI) | payer OTHER ==
--- NOTE | 2020-05-18 09:59 | WOMENS IMAGING REPORT ---
EXAM DESCRIPTION: BONE DENSITY HIP/SPINE IMAGES COMPLETED DATE/TIME: 05/18/2020 9:33 am REASON FOR STUDY: M81.0 AGE-RELATED OSTEOPOROSIS W/O CURRENT PATHOLOGICAL FRACTURE M81.0 AGE-RELATE D OSTEOPOROSIS W/O CURRENT PATHOLOGICAL FRAC COMPARISON: 05/12/2018 TECHNIQUE: Dual-Energy X-ray Absorptiometry (DEXA) of the AP Spine and Hip. LIMITATIONS: None. FINDINGS: LUMBAR SPINE: The bone mineral density (BMD) measured from L1-L4 in the AP projection correlates with a T-score of -2.0, which is osteopenia as defined by the World Health Organization. BMD Change vs Baseline: -1.5% HIP: The bone mineral density (BMD) measured in the left hip correlates with a T-score of -1.3, which is o steopenia as defined by the World Health Organization. BMD Change vs Baseline: -5.6% 10 year Fracture Risk Assessment: Major Osteoporotic Fracture: 7.3% Hip Fracture: 0.6% IMPRESSION: 1. LUMBAR SPINE WHO CLASSIFICATION: OSTEOPENIA. 2. HIP WHO CLASSIFICATION: OSTEOPENIA. OVERALL ASSESSMENT: WHO CLASSIFICATION: OSTEOPENIA. COMMENT: The World Health Organization defines low BMD as follows: T-score: Normal: At or above -1.0 Osteopenia: Between -1.0 and -2.5 Osteoporosis: At or below -2.5 without fractures Established osteoporosis: At or below -2.5 with fractures In general, you may wish to consider: Diagnosis Treatment Follow-up DEXA Normal BMD Prevention 2-3 years Osteopenia Prevention/Therapy 1-2 years Osteoporosis Therapy Yearly TECHNICAL DOCUMENTATION: JOB ID: [id number] 2010 [employer]- All Rights Reserved Reading location - IP/workstation name: [email or web address]
== END ==
LOC: WI 08:47
PROVIDERS: ATTEND Nurse Practitioner Family
DX: M81.0 Age-related osteoporosis without current pathological fracture (principal)
CPT/HCPCS: 77080